=== PATIENT | female | born 1970 | race American Indian/Alaskan Native ===

== ENCOUNTER 2019-04-30 08:10 | Emergency (ER) | payer SELFPAY ==
[2019-04-30 08:26] VITALS: BP 171/90
[2019-04-30 09:29] LABS: Basophils % (Auto) 0.3 % (0.0-1.8); Eosinophils # (Auto) 0.1 K/mm3 (0.0-0.4); Eosinophils % (Auto) 0.8 % (0.0-4.3); Hematocrit 38.3 % (30.3-42.9); Hemoglobin 12.5 gm/dl (10.1-14.3); Lymphocytes # (Auto) 2.5 K/mm3 (1.2-5.4); Lymphocytes % (Auto) 28.9 % (13.4-35.0); Mean Corpuscular HGB Conc 33 % (30-34); Mean Corpuscular Volume 88 fl (79-97); Monocytes # (Auto) 0.6 K/mm3 (0.0-0.8); Monocytes % (Auto) 6.6 % (0.0-7.3); Platelet Count 284 K/mm3 (140-440); Red Blood Count 4.37 M/mm3 (3.65-5.03); Red Cell Distribution Width 13.9 % (13.2-15.2)
--- NOTE | 2019-04-30 10:25 | Emergency Department Report ---
ED Female HPI - General Chief complaint: Back Pain/Injury Stated complaint: PAIN ON SIDE/BACK Time Seen by Provider: 04/30/19 08:51 Source: patient Mode of arrival: Ambulatory Limitations: No Limitations - History of Present Illness Initial comments: 48-year-old [place] female with reported history of uterine fibroids presents emerge department complaining of continued episodes of pelvic cramping and pain associated with irregular menstrual menstrual periods. Periods are sometimes very heavy with clots and fluctuating. No fever, chills, sweats no foul odor no vaginal discharge no worry of an STD and she denies any trauma. She reports no chest pain palpitations she was prescribed a hormonal medication which helped to improve her symptoms however she is recently stopped taking the medication and began having reemergence of her symptoms we will brought her to the emergency department today. MD Complaint: vaginal bleeding, pelvic pain Location: suprapubic Radiation: non-radiating, other (Her back area) Severity: mild Quality: dull Consistency: constant Are you Now?: No Associated Symptoms: vaginal bleeding. denies: dysuria, shortness of breath, syncope, weakness - Related Data Home Medications Medication Instructions Recorded Confirmed Last Taken Prednisone [predniSONE 5 mg (6-Day 5 mg PO QDAY 01/15/13 01/15/13 01/12/13 Pack, 21 Tabs)] Previous Rx's Medication Instructions Recorded Last Taken Type Hyoscyamine Subl [Levsin Sl] 0.125 mg SL Q4HR PRN #15 tablet 01/15/13 Unknown Rx Ondansetron [Zofran Odt] 8 mg PO Q8H #20 tab.rapdis 01/15/13 Unknown Rx Allergies Allergy/AdvReac Type Severity Reaction Status Date / Time Sulfa (Sulfonamide Allergy Rash Unverified 02/23/16 07:24 Antibiotics) ED Review of Systems ROS: Stated complaint: PAIN ON SIDE/BACK Other details as noted in HPI Comment: All other systems reviewed and negative ED Past Medical Hx - Past Medical History Previous Medical History?: No - Surgical History Additional Surgical History: l) ovary removed - Social History Smoking Status: Never Smoker Substance Use Type: None - Medications Home Medications: Home Medications Medication Instructions Recorded Confirmed Last Taken Type Hyoscyamine Subl [Levsin Sl] 0.125 mg SL Q4HR PRN #15 tablet 01/15/13 Unknown Rx Ondansetron [Zofran Odt] 8 mg PO Q8H #20 tab.rapdis 01/15/13 Unknown Rx Prednisone [predniSONE 5 mg (6-Day 5 mg PO QDAY 01/15/13 01/15/13 01/12/13 History Pack, 21 Tabs)] ED Physical Exam - General Limitations: No Limitations General appearance: alert, in no apparent distress - Head Head exam: Present: atraumatic, normocephalic - Eye Eye exam: Present: normal appearance, PERRL, EOMI Pupils: Present: normal accommodation - ENT ENT exam: Present: normal exam, normal orophraynx, mucous membranes moist, TM's normal bilaterally - Neck Neck exam: Present: normal inspection, full ROM - Respiratory Respiratory exam: Present: normal lung sounds bilaterally. Absent: respiratory distress - Cardiovascular Cardiovascular Exam: Present: regular rate, normal rhythm. Absent: systolic murmur, diastolic murmur, rubs, gallop - GI/Abdominal GI/Abdominal exam: Present: soft, normal bowel sounds. Absent: tenderness, guarding, hyperactive bowel sounds, hypoactive bowel sounds, organomegaly, mass, bruit - Extremities Exam Extremities exam: Present: normal inspection - Back Exam Back exam: Present: normal inspection, full ROM. Absent: CVA tenderness (R), CVA tenderness (L), muscle spasm, paraspinal tenderness - Neurological Exam Neurological exam: Present: alert, oriented X3, CN II-XII intact, normal gait - Psychiatric Psychiatric exam: Present: normal affect, normal mood - Skin Skin exam: Present: warm, dry, intact, normal color. Absent: rash ED Course Vital Signs 04/30/19 08:24 Temperature 97.6 F Pulse Rate 100 H Respiratory 20 Rate Blood Pressure 171/90 O2 Sat by Pulse 98 Oximetry ED Medical Decision Making - Lab Data Result diagrams: 04/30/19 08:57 Critical care attestation.: If time is entered above; I have spent that time in minutes in the direct care of this critically ill patient, excluding procedure time. ED Disposition Clinical Impression: Dysfunctional uterine bleeding, Pelvic pain Disposition: DC-01 TO HOME OR SELFCARE Is pt being admited?: No Does the pt Need Aspirin: No Condition: Stable Instructions: Dysfunctional Uterine Bleeding (ED), Chronic Pelvic Pain in Women (ED) Referrals: RUSTY MCKEON MD [Primary Care Provider] - 3-5 Days
== END 2019-04-30 10:41 | disposition home or self-care (01) ==
LOC: ED 08:10
DX: N93.8 Other specified abnormal uterine and vaginal bleeding (principal); Z88.2 Allergy status to sulfonamides; Z98.890 Other specified postprocedural states; Z79.899 Other long term (current) drug therapy
CPT/HCPCS: 36415; 85025

== ENCOUNTER 2020-01-08 10:04 | Day surgery (SDC) | payer BC ==
[~2020-01-08 10:04] MED LIST: SODIUM CHLORIDE 0.9% 1000 ML 1,000 ML IV SCH
--- NOTE | 2020-01-08 11:33 | Anesthesia Consultation ---
Anesthesia Consult and Med Hx Date of service: 01/08/20 - Airway Anesthetic Teeth Evaluation: Good ROM Head & Neck: Adequate Mental/Hyoid Distance: Adequate Mallampati Class: Class II Intubation Access Assessment: Probably Good - Pulmonary Exam CTA: Yes - Cardiac Exam Cardiac Exam: RRR - Pre-Operative Health Status ASA Pre-Surgery Classification: ASA2 Proposed Anesthetic Plan: MAC - Pulmonary Hx Smoking: No Hx Asthma: Yes (last albuterol 4-5yrs ago) Hx Respiratory Symptoms: No - Cardiovascular System Hx Hypertension: Yes (took antihypertensive this morning) Hx Heart Attack/AMI: No Hx Percutaneous Transluminal Coronary Angioplasty (PTCA): No - Central Nervous System CVA: No - Endocrine Hx Renal Disease: No Hx Liver Disease: No Hx Non-Insulin Dependent Diabetes: Yes (pre-DM) Hx Thyroid Disease: No - Other Systems Hx Obesity: Yes (BMI 32)
--- NOTE | 2020-01-08 11:33 | Anesthesia Day of Surgery ---
Anesthesia Day of Surgery - Day of Surgery Patient Examined: Yes Patient H&P Reviewed: Yes Patient is NPO: Yes
[2020-01-08] MEDS ORDERED: propofoL 200 MG/20 ML VIAL IV ONE ×2 (12:00→12:16)
--- NOTE | 2020-01-08 12:31 | Procedure Note ---
Date of procedure: 01/08/20 Pre-op diagnosis: GERD/ Esophagitis Post-op diagnosis: other (Mild to Moderate Erosive Esophagitis/ Gastritis/ R/O Eosinophilic Esophagitis) Procedure: EGD with Biopsy Anesthesia: MAC Surgeon: ROBIN QUIÑONES Estimated blood loss: minimal Pathology: list Specimen disposition: to lab Condition: stable Disposition: same day (Treat with PPI and Reglan. Avoid aspirin and NSAID for 4 days; otherwise resume home medication. Follow up in 1 to 2 weeks ([phone]).)
--- NOTE | 2020-01-08 12:42 | Operative Report ---
PROCEDURE: Esophagogastroduodenoscopy with biopsy. INDICATIONS: This is a 49-year-old -[place] female who has been complaining of GERD symptoms. EGD was done to assess for any esophagitis and for the severity of the esophagitis. DESCRIPTION OF PROCEDURE: The procedure was done after getting informed consent with MAC anesthesia. Instrument was passed through the hypopharynx into the esophagus, which showed a [id number] distal erosive esophagitis. Photodocumentation and biopsy was done from the distal esophagus. Additional biopsy was done from the mid esophagus to assess for possible eosinophilic esophagitis. Biopsy from the distal esophagus to assess for the severity of the erosive esophagitis. The stomach showed gastritis. No ulcers were noted in the straight or the retroverted view. The pylorus was patent. The duodenum in the first and second portion appeared normal. Additional biopsy was done from the gastric antrum, gastric body and angular incisura to rule out for H. pylori and atrophic gastritis. There was minimal bleeding associated with the procedure. No complications associated with the procedure. ASSESSMENT: Gastroesophageal reflux disease symptoms, mild to moderate erosive esophagitis, gastritis, rule out eosinophilic esophagitis. PLAN: Treat the patient with PPI as well as Reglan. Have the patient avoid aspirin and aspirin-related products for the next 5 days. Otherwise, resume home medication and follow up in the office in 1-2 weeks' time. Procedure was done in the GI lab with assistance of the GI lab team, which included Isatu MEADOWS; Philippe boothe and with assistance of anesthesia. JOB# [id number] JADA/JEREMY
[2020-01-08 13:24] VITALS: BP 132/70
--- NOTE | 2020-01-08 13:28 | Post Anesthesia Evaluation ---
- Post Anesthesia Evaluation Patient Participated: Yes Airway Patent: Yes Stable Respiratory Function: Yes Nausea/Vomiting: No Temp > 96.8F: Yes Pain Manageable: Yes Adequeate Hydration: Yes Anesthesia Complications: No
== END 2020-01-08 10:05 | disposition home or self-care (01) ==
LOC: GIO 10:04
DX: K21.00 Gastro-esophageal reflux disease with esophagitis, without bleeding (principal); K31.89 Other diseases of stomach and duodenum; I10 Essential (primary) hypertension; J45.909 Unspecified asthma, uncomplicated; K21.9 Gastro-esophageal reflux disease without esophagitis; E11.9 Type 2 diabetes mellitus without complications; F32.9 Major depressive disorder, single episode, unspecified; Z79.899 Other long term (current) drug therapy; Z88.2 Allergy status to sulfonamides
CPT/HCPCS: 43239; 81025; 88305; 88342; J2704; J7030